=== PATIENT | female | born 1995 | race Caucasian/White ===

== ENCOUNTER 2018-02-14 05:39 | Emergency (ER) | payer OTHER | END 2018-02-14 07:16 | disposition home or self-care (01) | LOC: FTE 05:39 | DX: S39.92XA Unspecified injury of lower back, initial encounter (principal); S20.229A Contusion of unspecified back wall of thorax, initial encounter; Y04.0XXA Assault by unarmed brawl or fight, initial encounter | CPT/HCPCS: 72072; 72100; 81025; 99283-25 ==

== ENCOUNTER 2018-02-16 04:39 | Emergency (ER) | payer OTHER | END 2018-02-16 05:30 | disposition home or self-care (01) | LOC: FTE 04:39 | DX: J02.9 Acute pharyngitis, unspecified (principal) | CPT/HCPCS: 99283; Z7502 ==

== ENCOUNTER 2018-05-06 05:15 | Emergency (ER) | payer OTHER | END 2018-05-06 07:54 | disposition home or self-care (01) | LOC: FTE 05:15 | DX: H61.21 Impacted cerumen, right ear (principal) | CPT/HCPCS: 69209; 99283-25 ==